=== PATIENT | male | born 2000 | race African-American/Black ===

== ENCOUNTER → 2018-08-21 | Emergency (ER) | payer OTHER, SELFPAY | LOC: ERS 11:06 | DX: K60.2 Anal fissure, unspecified (principal); Z71.6 Tobacco abuse counseling; F41.9 Anxiety disorder, unspecified; F31.9 Bipolar disorder, unspecified; F17.220 Nicotine dependence, chewing tobacco, uncomplicated | CPT/HCPCS: 99406 ==

== ENCOUNTER 2018-08-29 10:10 | Emergency (ER) | payer SELFPAY ==
[2018-08-29 10:32] LABS: Bilirubin Negative (Negative); Blood, Urine Negative (Negative); Clarity CLEAR (Clear); Glucose, Urine (Dipstick) Negative (Negative); Leukocyte Negative (Negative); Nitrite Negative (Negative); Protein, Urine (Dipstick) Negative (Neg-Trace); pH, Urine 7.5 (5.0-9.0)
[2018-08-29 10:43] LABS: Amphetamine Not Detected (NotDetected); Barbiturates Screen Not Detected (NotDetected); Benzodiazepine Screen Not Detected (NotDetected); Cocaine Metabolite Screen Not Detected (NotDetected); Medtox Control Line Valid? VALID (VALID); Medtox Reader # READER 1; Methadone Not Detected (NotDetected); Methamphetamine Not Detected (NotDetected); Opiate Screen Not Detected (NotDetected); Oxycodone Screen Not Detected (NotDetected); Phencyclidine (PCP) Not Detected (NotDetected); THC/Cannabinoid Screen Detected (NotDetected); Tricyclic Screen Not Detected (NotDetected)
[2018-08-29 10:45] LABS: #Basophils 0.1 thou/uL (0.0-0.2); #Lymphocytes 1.9 thou/uL (1.20-3.40); #Monocytes 0.7 thou/uL (0.11-0.59); #Neutrophils 7.9 thou/uL (1.40-6.50); %Basophils 0.6 % (0.0-1.0); %Eosinophils 0.4 % (0.0-10.0); %Lymphocytes 18.2 % (28.0-48.0); %Monocytes 6.7 % (0.0-4.0); %Neutrophils 74.1 % (31.0-61.0); Hemoglobin 15.8 g/dL (14.0-18.0); Mean Corpuscular HGB CONC 31.3 g/dL (32.0-36.0); Mean Corpuscular Hemoglobin 29.3 pg (25.0-35.0); Mean Corpuscular Volume 93.4 fL (78.0-98.0); Mean Platelet Volume 6.7 fL (7.4-10.4); Platelet Count 373 thou/uL (130-400); RBC Distribution Width 12.4 % (11.5-14.5); Red Blood Cell (RBC) Count 5.39 mill/uL (4.00-5.20); White Blood Cell (WBC) Count 10.6 thou/uL (4.8-10.8)
[2018-08-29 11:05] LABS: Acetaminophen Less than 6.0 mcg/mL (10.0-30.0); Alcohol Less than 10 mg/dL (Less than 10); CK (CPK) 313 U/L (30-200); Salicylate Less than 8.0 mg/dL (15.0-30.0)
[2018-08-29 11:07] LABS: ALT (SGPT) 12 U/L (8-55); AST (SGOT) 22 U/L (10-45); Albumin 4.7 g/dL (3.5-5.0); Alkaline Phosphatase 88 U/L (Less than 750); Anion Gap 15 mmol/L (10-20); BUN (Urea Nitrogen) 9 mg/dL (8.4-21.0); Bilirubin, Total 0.6 mg/dL (0.2-1.2); Calc. Creatinine Clearance 0 mL/min (70-130); Calcium 10.2 mg/dL (7.8-10.44); Carbon Dioxide 22 mmol/L (22-29); Chloride 107 mmol/L (98-107); Estimated GFR-MDRD Greater than 90; Globulin 4.6 g/dL (2.4-3.5); Glucose 100 mg/dL (70-105); Potassium 4.3 mmol/L (3.5-5.1); Protein, Total 9.3 g/dL (6.0-8.3); Sodium 140 mmol/L (136-145)
[2018-08-29] MEDS ORDERED: ALPRAZolam 0.25 MG TAB ONE (11:58)
[2018-08-29] MEDS ORDERED: Haloperidol Lactate 5 MG/ML VIAL ONE (14:18)
[2018-08-29] MEDS ORDERED: diphenhydrAMINE 50 MG/ML VIAL ONE (14:18)
[2018-08-29] MEDS ORDERED: Lorazepam 2 MG/ML VIAL ONE (14:18)
[2018-08-30] MEDS ORDERED: hydrOXYzine Pamoate 25 mg Capsule ONE ×2 (08:03→08:05)
[2018-08-30] MEDS ORDERED: Nicotine 14 MG PATCH TOP SCH (16:15)
[2018-08-30] MEDS ORDERED: Docusate 100 MG CAP PO SCH (16:15)
[2018-08-30] MEDS ORDERED: hydrOXYzine Pamoate 25 mg Capsule PO PRN (16:15)
[2018-08-30] MEDS ORDERED: hydrOXYzine 25 MG TAB ONE (16:35)
[2018-08-30] MEDS ORDERED: traZODone HCl 50 MG TAB ONE (19:29)
== END 2018-08-31 13:50 | disposition home or self-care (01) ==
LOC: ERS 10:10
DX: F32.9 Major depressive disorder, single episode, unspecified (principal); R45.851 Suicidal ideations; F12.10 Cannabis abuse, uncomplicated; F41.9 Anxiety disorder, unspecified; F17.220 Nicotine dependence, chewing tobacco, uncomplicated
CPT/HCPCS: 36415; 80053; 80306; 80307; 81003; 82550; 85025; 96372; J1200; J1630; J2060; Q0177

== ENCOUNTER 2018-09-04 05:05 | Emergency (ER) | payer SELFPAY | END 2018-09-04 06:54 | disposition home or self-care (01) | LOC: ERS 05:05 | DX: K62.89 Other specified diseases of anus and rectum (principal); F41.9 Anxiety disorder, unspecified; F31.9 Bipolar disorder, unspecified; F17.220 Nicotine dependence, chewing tobacco, uncomplicated | CPT/HCPCS: 99283 ==

== ENCOUNTER 2018-09-06 12:02 | Emergency (ER) | payer SELFPAY ==
[2018-09-06 12:47] LABS: #Basophils 0.1 thou/uL (0.0-0.2); #Eosinphils 0.1 thou/uL (0.0-0.7); #Lymphocytes 2.3 thou/uL (1.20-3.40); #Monocytes 1.7 thou/uL (0.11-0.59); %Basophils 0.4 % (0.0-1.0); %Eosinophils 0.4 % (0.0-10.0); %Lymphocytes 14.4 % (28.0-48.0); %Monocytes 10.6 % (0.0-4.0); %Neutrophils 74.2 % (31.0-61.0); Mean Corpuscular Volume 93.6 fL (78.0-98.0); Mean Platelet Volume 6.8 fL (7.4-10.4); Platelet Count 360 thou/uL (130-400); RBC Distribution Width 12.3 % (11.5-14.5); Red Blood Cell (RBC) Count 5.02 mill/uL (4.00-5.20); White Blood Cell (WBC) Count 16.2 thou/uL (4.8-10.8)
[2018-09-06 13:06] LABS: ALT (SGPT) 11 U/L (8-55); AST (SGOT) 18 U/L (10-45); Albumin 4.4 g/dL (3.5-5.0); Alkaline Phosphatase 85 U/L (Less than 750); Anion Gap 15 mmol/L (10-20); BUN (Urea Nitrogen) 11 mg/dL (8.4-21.0); Bilirubin, Total 0.6 mg/dL (0.2-1.2); Calc. Creatinine Clearance 0 mL/min (70-130); Calcium 9.8 mg/dL (7.8-10.44); Carbon Dioxide 25 mmol/L (22-29); Chloride 100 mmol/L (98-107); Estimated GFR-MDRD Greater than 90; Globulin 4.3 g/dL (2.4-3.5); Glucose 91 mg/dL (70-105); Potassium 3.8 mmol/L (3.5-5.1); Protein, Total 8.7 g/dL (6.0-8.3); Sodium 136 mmol/L (136-145)
== END 2018-09-06 12:46 | disposition home or self-care (01) ==
LOC: ERS 12:02
DX: J02.9 Acute pharyngitis, unspecified (principal); F41.9 Anxiety disorder, unspecified; F31.9 Bipolar disorder, unspecified; F17.220 Nicotine dependence, chewing tobacco, uncomplicated
CPT/HCPCS: 36415; 80053; 85025; 87081; 87430; 99281

== ENCOUNTER 2018-09-06 21:11 | Emergency (ER) | payer SELFPAY ==
--- NOTE | 2018-09-06 22:08 | RAD ---
CHEST, TWO VIEWS: HISTORY: Chest pain. Chills. COMPARISON: 10/20/2016 TECHNIQUE: PA and lateral views of the chest are obtained on 09/06/2018. FINDINGS: Two views of the chest demonstrate the lungs to be well aerated. No evidence of active intrathoracic disease is seen. No evidence of effusions, pneumonia, or pneumothorax is seen. IMPRESSION: Normal two views chest. POS: [facility]
[2018-09-06] MEDS ORDERED: Acetaminophen 500 MG TAB ONE (22:45)
== END 2018-09-06 23:12 | disposition home or self-care (01) ==
LOC: ERS 21:11
DX: J40 Bronchitis, not specified as acute or chronic (principal); J02.9 Acute pharyngitis, unspecified; H92.09 Otalgia, unspecified ear; F17.220 Nicotine dependence, chewing tobacco, uncomplicated; F31.9 Bipolar disorder, unspecified; F41.9 Anxiety disorder, unspecified
CPT/HCPCS: 71046; 87804

== ENCOUNTER 2019-08-17 20:41 | Emergency (ER) | payer OTHER | END 2019-08-17 22:47 | disposition left against medical advice (07) | LOC: ERS 20:41 | DX: R10.30 Lower abdominal pain, unspecified (principal); R19.7 Diarrhea, unspecified; R11.2 Nausea with vomiting, unspecified; R63.0 Anorexia; F31.9 Bipolar disorder, unspecified; F41.9 Anxiety disorder, unspecified; F17.220 Nicotine dependence, chewing tobacco, uncomplicated | CPT/HCPCS: 99283 ==

== ENCOUNTER 2020-04-20 19:46 | Emergency (ER) | payer OTHER | END 2020-04-20 21:00 | disposition home or self-care (01) | LOC: ERS 19:46 | DX: K40.90 Unilateral inguinal hernia, without obstruction or gangrene, not specified as recurrent (principal); F41.9 Anxiety disorder, unspecified; F31.9 Bipolar disorder, unspecified; F17.220 Nicotine dependence, chewing tobacco, uncomplicated | CPT/HCPCS: 99281 ==

== ENCOUNTER 2022-01-05 21:15 | Emergency (ER) | payer OTHER | END 2022-01-05 22:28 | LOC: ERS 21:15 | DX: R07.9 Chest pain, unspecified (principal); I10 Essential (primary) hypertension; F17.220 Nicotine dependence, chewing tobacco, uncomplicated | CPT/HCPCS: 93005 ==